=== PATIENT | female | born 1960 | race Caucasian/White ===

== ENCOUNTER 2017-01-07 23:37 | Emergency (ER) | payer OTHER ==
[2017-01-07] MEDS ORDERED: Albuterol/Ipratropium NEB.SOL* Albuterol 2.5 MG/Ipratropium 0.5 MG 3 ML INH ONE (23:54)
[2017-01-07] MEDS ORDERED: methylPREDNISolone 125 MG* 2 ML VIAL IV ONE (23:54)
[2017-01-08 00:13] LABS: Hematocrit 45 % (35-47); Hemoglobin 15.7 g/dl (12.0-16.0); Mean Corpuscular HGB Conc 35 g/dl (31-36); Mean Corpuscular Hemoglobin 32 pg (27-31); Mean Corpuscular Volume 92 fL (80-97); Mean Platelet Volume 7 um3 (7.4-10.4); Red Blood Count 4.93 10^6/ul (4.0-5.4); Red Cell Distribution Width 13 % (10.5-15); White Blood Count 7.2 10^3/ul (3.5-10.8)
[2017-01-08 00:28] LABS: Albumin 4.1 g/dL (3.2-5.2); Calcium 9.5 mg/dL (8.6-10.3); EGFR Non-African American 66.1 (>60); Magnesium 2.2 mg/dL (1.9-2.7); Total Bilirubin 0.4 mg/dL (0.2-1.0); Total Protein 7.1 g/dL (6.4-8.9)
[2017-01-08 00:47] LABS: PCO2 Arterial 43 mmHg (35-45)
[2017-01-08] MEDS ORDERED: Azithromycin TAB* 250 MG PO ONE (01:25)
[2017-01-08] MEDS ORDERED: Ondansetron INJ* 2 MG/ML VIAL IV ONE (01:54)
[2017-01-08] MEDS ORDERED: Ondansetron INJ* 2 MG/ML VIAL ONE (01:55)
[2017-01-08 03:04] VITALS: BP 120/70
--- NOTE | 2017-01-08 03:09 | ED ---
Kandy Ren Emily, scribed for Andrae Herrera on 01/08/17 at 0009 . Shortness of Breath - HPI Summary HPI Summary: This patient is a 56 year old F presenting to [facility] accompanied by family with a chief complaint of SOB that began this morning. The patient rates the pain 7/ 10 in severity. Symptoms aggravated by movement. Symptoms alleviated by nothing. Patient reports CP and inability to walk long distances due to SOB. Patient denies leg swelling. Pt denies hx of respiratory issues. - History of Current Complaint Chief Complaint: EDShortnessOfBreath Time Seen by Provider: 01/07/17 23:43 Hx Obtained From: Patient Onset/Duration: Sudden Onset, Lasting Hours, Still Present Current Severity: Moderate Aggrevating Factors: Movement Alleviating Factors: Nothing - Allergy/Home Medications Allergies/Adverse Reactions: Allergies Allergy/AdvReac Type Severity Reaction Status Date / Time No Known Allergies Allergy Verified 01/07/17 23:41 PMH/Surg Hx/FS Hx/Imm Hx Previously Healthy: Yes Cardiovascular History: Denies: Hx Deep Vein Thrombosis Respiratory History: Denies: Hx Chronic Obstructive Pulmonary Disease (COPD) - PT.STATES NOT DX'D BUT SHE'S SURE SHE HAS COPD Sensory History: Denies: Hx Legally Blind - Surgical History Surgery Procedure, Year, and Place: SURGERY ON FOOT, ELBOW Infectious Disease History: No Infectious Disease History: Denies: Traveled Outside the [place] in Last 30 Days - Family History Known Family History: Positive: Cardiac Disease - ALL UNCLES/AUNTS PASSED FROM [place] - [place] 40, Respiratory Disease - MOTHER - COPD, STOMACH CANCER - Social History Lives: With Family Alcohol Use: None Hx Substance Use: No Substance Use Type: Reports: None Hx Tobacco Use: Yes Smoking Status (MU): Heavy Every Day Tobacco Smoker Review of Systems Positive: Chest Pain Positive: Shortness Of Breath Positive: Other - Positive inability to walk long distances. Negative leg swelling All Other Systems Reviewed And Are Negative: Yes Physical Exam Triage Information Reviewed: Yes Vital Signs On Initial Exam: Initial Vitals Temp Pulse Resp BP Pulse Ox 97.8 F 78 26 166/84 93 01/07/17 23:39 01/07/17 23:39 01/07/17 23:39 01/07/17 23:39 01/07/17 23:39 Vital Signs Reviewed: Yes Appearance: Positive: Well-Appearing, No Pain Distress Skin: Positive: Warm, Skin Color Reflects Adequate Perfusion, Dry Head/Face: Positive: Normal Head/Face Inspection Eyes: Positive: EOMI, AYO ENT: Positive: Normal ENT inspection Neck: Positive: Supple, Nontender Respiratory/Lung Sounds: Positive: Wheezes - Bilateral, Other - Poor air entry Cardiovascular: Positive: RRR, Pulses are Symmetrical in both Upper and Lower Extremities Abdomen Description: Positive: Nontender, Soft Bowel Sounds: Positive: Present Musculoskeletal: Positive: Normal, Strength/ROM Intact Neurological: Positive: Normal, Sensory/Motor Intact, Alert, Oriented to Person Place, Time Diagnostics - Vital Signs Vital Signs Temp Pulse Resp BP Pulse Ox 01/07/17 23:39 97.8 F 78 26 166/84 93 - Laboratory Lab Results: Lab Results 01/07/17 01/07/17 01/08/17 Range/Units 00:15 23:53 00:02 WBC (3.5-10.8) 10^3/ul RBC (4.0-5.4) 10^6/ul Hgb (12.0-16.0) g/dl Hct (35-47) % MCV (80-97) fL MCH (27-31) pg MCHC (31-36) g/dl RDW (10.5-15) % Plt Count (150-450) 10^3/ul MPV (7.4-10.4) um3 Neut % (Auto) (38-83) % Lymph % (Auto) (25-47) % Barren % (Auto) (1-9) % Eos % (Auto) (0-6) % Baso % (Auto) (0-2) % Absolute Neuts (auto) (1.5-7.7) 10^3/ul Absolute Lymphs (auto) (1.0-4.8) 10^3/ul Absolute Monos (auto) (0-0.8) 10^3/ul Absolute Eos (auto) (0-0.6) 10^3/ul Absolute Basos (auto) (0-0.2) 10^3/ul Absolute Nucleated RBC 10^3/ul Nucleated RBC % INR (Anticoag Therapy) (0.89-1.11) APTT (26.0-36.3) seconds D-Dimer, Quantitative (Less Than 230) ng/mL ABG pH 7.41 (7.35-7.45) ABG pCO2 43 (35-45) mmHg ABG pO2 86 (80-100) mmHg ABG HCO3 26.5 (19-31) mmol/L ABG O2 Saturation 98.6 H (95-98) % ABG Base Excess 2.2 H (-2.0-2.0) Sodium 136 (133-145) mmol/L Potassium 4.0 (3.5-5.0) mmol/L Chloride 102 (101-111) mmol/L Carbon Dioxide 28 (22-32) mmol/L Anion Gap 6 (2-11) mmol/L BUN 16 (6-24) mg/dL Creatinine 0.89 (0.51-0.95) mg/dL Est GFR ( Amer) 85.0 (>60) Est GFR (Non-Af Amer) 66.1 (>60) BUN/Creatinine Ratio 18.0 (8-20) Glucose 109 H (70-100) mg/dL Lactic Acid (0.5-2.0) mmol/L Calcium 9.5 (8.6-10.3) mg/dL Magnesium 2.2 (1.9-2.7) mg/dL Total Bilirubin 0.40 (0.2-1.0) mg/dL AST 23 (13-39) U/L ALT 16 (7-52) U/L Alkaline Phosphatase 68 (34-104) U/L Troponin I 0.00 (<0.04) ng/mL B-Natriuretic Peptide 34 ( - 100) pg/mL Total Protein 7.1 (6.4-8.9) g/dL Albumin 4.1 (3.2-5.2) g/dL Globulin 3.0 (2-4) g/dL Albumin/Globulin Ratio 1.4 (1-3) 01/08/17 01/08/17 01/08/17 Range/Units 23:53 23:53 23:53 WBC 7.2 (3.5-10.8) 10^3/ul RBC 4.93 (4.0-5.4) 10^6/ul Hgb 15.7 (12.0-16.0) g/dl Hct 45 (35-47) % MCV 92 (80-97) fL MCH 32 H (27-31) pg MCHC 35 (31-36) g/dl RDW 13 (10.5-15) % Plt Count 229 (150-450) 10^3/ul MPV 7 L (7.4-10.4) um3 Neut % (Auto) 53.3 (38-83) % Lymph % (Auto) 33.2 (25-47) % Barren % (Auto) 11.6 H (1-9) % Eos % (Auto) 1.0 (0-6) % Baso % (Auto) 0.9 (0-2) % Absolute Neuts (auto) 3.8 (1.5-7.7) 10^3/ul Absolute Lymphs (auto) 2.4 (1.0-4.8) 10^3/ul Absolute Monos (auto) 0.8 (0-0.8) 10^3/ul Absolute Eos (auto) 0.1 (0-0.6) 10^3/ul Absolute Basos (auto) 0.1 (0-0.2) 10^3/ul Absolute Nucleated RBC 0.01 10^3/ul Nucleated RBC % 0.1 INR (Anticoag Therapy) 0.85 L (0.89-1.11) APTT 32.8 (26.0-36.3) seconds D-Dimer, Quantitative < 200 (Less Than 230) ng/mL ABG pH (7.35-7.45) ABG pCO2 (35-45) mmHg ABG pO2 (80-100) mmHg ABG HCO3 (19-31) mmol/L ABG O2 Saturation (95-98) % ABG Base Excess (-2.0-2.0) Sodium (133-145) mmol/L Potassium (3.5-5.0) mmol/L Chloride (101-111) mmol/L Carbon Dioxide (22-32) mmol/L Anion Gap (2-11) mmol/L BUN (6-24) mg/dL Creatinine (0.51-0.95) mg/dL Est GFR ( Amer) (>60) Est GFR (Non-Af Amer) (>60) BUN/Creatinine Ratio (8-20) Glucose (70-100) mg/dL Lactic Acid 0.5 (0.5-2.0) mmol/L Calcium (8.6-10.3) mg/dL Magnesium (1.9-2.7) mg/dL Total Bilirubin (0.2-1.0) mg/dL AST (13-39) U/L ALT (7-52) U/L Alkaline Phosphatase (34-104) U/L Troponin I (<0.04) ng/mL B-Natriuretic Peptide ( - 100) pg/mL Total Protein (6.4-8.9) g/dL Albumin (3.2-5.2) g/dL Globulin (2-4) g/dL Albumin/Globulin Ratio (1-3) Result Diagrams: 01/08/17 23:53 01/08/17 00:02 Lab Statement: Any lab studies that have been ordered have been reviewed, and results considered in the medical decision making process. - Radiology CXR Radiology Interpretation Completed By: ED Physician - CXR read by ED physician reveals COPD. - EKG 41 Cardiac Rate: NL - 86 BPM EKG Rhythm: Sinus Rhythm EKG Interpretation: No acute changes Re-Evaluation - Re-Evaluation First Eval Re-Evaluation Time: 01:22 Change: Improved Course/Dx - Course Assessment/Plan: This patient is a 56 year old F presenting to [facility] accompanied by family with a chief complaint of SOB that began this morning. The patient rates the pain 7/10 in severity. Symptoms aggravated by movement. Symptoms alleviated by nothing. Patient reports CP and inability to walk long distances due to SOB. Patient denies leg swelling. Pt denies hx of respiratory issues. Physical Exam Findings. Bilateral wheeze. Poor air entry. Medical Decision Making. An EKG taken at 0042 reveals nml sinus rhythm at 86 BPM with no acute changes. CXR read by ED physician reveals COPD. In the ED course the patient was given duoneb and albuterol. Pulse oximeter done, pt was short of breath upon walking. Pt wants to leave [facility], does not want to be admitted. Patient will be discharged with prescription for albuterol and zithromax and follow up from PCP. The patient is agreeable with this plan. - Diagnoses Differential Diagnosis/HQI/PQRI: Positive: Asthma, Bronchitis, CHF, COPD Exacerbation, Pneumonia, Pneumothorax, Pulmonary Edema Provider Diagnoses: COPD exacerbation, Bronchospasm, Bronchitis Discharge - Discharge Plan Condition: Stable Disposition: HOME Prescriptions: Albuterol HFA INHALER* [Ventolin HFA Inhaler*] 2 puff INH Q6H PRN #1 mdi PRN Reason: Sob/Wheezing Azithromycin TAB* [Zithromax TAB (Z-JESS) 250 mg #6 tabs] 250 mg PO DAILY #4 tab predniSONE TAB* [Deltasone TAB*] 50 mg PO ONCE #5 tab Patient Education Materials: Acute Bronchitis (ED), COPD (Chronic Obstructive Pulmonary Disease) (ED), Bronchospasm (ED), Albuterol (By breathing), Azithromycin (By mouth) Referrals: [facility] [Outside] - 3 Days The documentation as recorded by the Kandy ramos Emily accurately reflects the service I personally performed and the decisions made by , Andrae Herrera.
--- NOTE | 2017-01-08 08:13 | RAD ---
INDICATION: Difficulty breathing COMPARISON: Similar chest x-ray October 14, 2014 TECHNIQUE: Single AP portable view of the chest was obtained. FINDINGS: Image quality is compromised due to the relative inferiority of a portable chest x-ray. The heart and mediastinum exhibit normal size and contour. On the AP view the lungs appear hyperaerated. The lungs are otherwise clear. There is no evidence of a large pleural effusion. Visualized bones are normal for the patient's age. IMPRESSION: Again seen is the appearance of chronic obstructive pulmonary disease without acute cardiopulmonary abnormality.
== END 2017-01-08 03:07 | disposition home or self-care (01) ==
LOC: ED 23:37
DX: J44.1 Chronic obstructive pulmonary disease with (acute) exacerbation (principal); J20.9 Acute bronchitis, unspecified; R06.02 Shortness of breath; F17.210 Nicotine dependence, cigarettes, uncomplicated
CPT/HCPCS: 36415; 36600; 71010; 80053; 82803; 83605; 83735; 83880; 84484; 85025; 85379; 85610; 85730; 87040; 93005; 94640; 96374; 96375; 99283; A9270-GY; J2405; J2930

== ENCOUNTER 2019-01-06 01:43 | Emergency (ER) | payer OTHER ==
--- NOTE | 2019-01-06 04:07 | ED ---
Abdominal Pain/Female - HPI Summary HPI Summary: This pt is a 58 Y/O F presenting to [facility] accompanied by her with a CC of mid epigastric abdominal pain that is rated a 10/10 in severity and has been present for months. She states that the pain has been intermittent since the onset. She states that her episode today has started since 229901/05/19. She denies any N/V, fevers, CP, SOB, and headaches. She states that she has no aggravating or alleviating factors. Her states that she has been having muscular cramps as a result to an incorrect thyroid medication. She denies any abdominal surgery. She states that she has a PMHx of degenerative spine disease and a Hx of COPD. She states that she smokes less than a half PPD. - History of Current Complaint Chief Complaint: EDAbdPain Stated Complaint: ABD PAIN PER EMS Time Seen by Provider: 01/06/19 03:56 Hx Obtained From: Patient Onset/Duration: Sudden Onset, Still Present Timing: Intermittent Episode Lasting - since 229901/05/19 Severity Initially: Severe Severity Currently: Severe Pain Intensity: 10 Pain Scale Used: 0-10 Numeric Location: Epigastric Radiates: No Character: Cramping Aggravating Factor(s): Nothing Alleviating Factor(s): Nothing Associated Signs and Symptoms: Positive: Negative - SOB, and headaches. Negative: Fever, Chest Pain, Nausea, Vomiting Allergies/Adverse Reactions: Allergies Allergy/AdvReac Type Severity Reaction Status Date / Time No Known Allergies Allergy Verified 01/06/19 01:55 Home Medications: Home Medications Budesonide/Formote 160/4.5(NF) [Symbicort 160/4.5 (NF)] 160 mg INH BID 01/06/19 [History Confirmed 01/06/19] Levothyroxine Sodium 100 mcg PO DAILY 01/06/19 [History Confirmed 01/06/19] PMH/Surg Hx/FS Hx/Imm Hx Previously Healthy: Yes Endocrine/Hematology History: Denies: Hx Diabetes Cardiovascular History: Denies: Hx Deep Vein Thrombosis Respiratory History: Reports: Hx Chronic Obstructive Pulmonary Disease (COPD) - PT.STATES NOT DX'D BUT SHE'S SURE SHE HAS COPD Denies: Hx Asthma Sensory History: Denies: Hx Legally Blind Opthamlomology History: Denies: Hx Legally Blind Neurological History: Reports: Other Neuro Impairments/Disorders - degenerative spine disease - Surgical History Surgical History: Yes Surgery Procedure, Year, and Place: SURGERY ON FOOT, ELBOW - Immunization History Date of Tetanus Vaccine: unk Date of Influenza Vaccine: unk Immunizations Up to Date: Yes Infectious Disease History: No Infectious Disease History: Denies: Traveled Outside the [place] in Last 30 Days - Family History Known Family History: Positive: Cardiac Disease - ALL UNCLES/AUNTS PASSED FROM [place] - [place] 38, Respiratory Disease - MOTHER - COPD, STOMACH CANCER - Social History Occupation: Disabled Lives: With Family Alcohol Use: None Hx Substance Use: Yes Substance Use Type: Reports: Marijuana Substance Use Comment - Amount & Last Used: daily Hx Tobacco Use: Yes Smoking Status (MU): Light Every Day Tobacco Smoker Amount Used/How Often: < 1/3 PPD Review of Systems Negative: Fever Negative: Chest Pain Negative: Shortness Of Breath Positive: Abdominal Pain - epigastric . Negative: Vomiting, Nausea Negative: Headache All Other Systems Reviewed And Are Negative: Yes Physical Exam - Summary Physical Exam Summary: Appearance: Well-appearing, Well-nourished, lying in bed comfortably Skin: Warm, dry, no obvious rash Eyes: sclera anicteric, no conjunctival pallor ENT: mucous membranes moist, pharynx appears normal Neck: Supple, nontender Respiratory: Clear to auscultation, no signs of respiratory distress Cardiovascular: Normal S1, S2. No murmurs. Normal distal pulses in tibial and radial bilaterally. Abdomen: Soft, very localized tenderness over the xyphoid process. There is no tenderness anywhere else in the abdomen. normal active bowel sounds present Musculoskeletal: Normal, Strength/ROM Intact Neurological: A&Ox3, awake and alert, mentation is normal, speech is fluent and appropriate Psychiatric: affect is normal, does not appear anxious or depressed Triage Information Reviewed: Yes Vital Signs On Initial Exam: Initial Vitals Pulse BP Pulse Ox 88 157/102 95 01/06/19 01:51 01/06/19 01:51 01/06/19 01:51 Vital Signs Reviewed: Yes Procedures - Sedation Patient Received Moderate/Deep Sedation with Procedure: No Diagnostics - Vital Signs Vital Signs Temp Pulse Resp BP Pulse Ox 01/06/19 02:52 71 125/100 95 01/06/19 02:22 70 114/81 95 01/06/19 02:00 89 96 01/06/19 01:52 97.8 F 79 18 157/102 96 01/06/19 01:51 88 157/102 95 - Laboratory Lab Statement: Any lab studies that have been ordered have been reviewed, and results considered in the medical decision making process. - Radiology Sternum X-Ray Radiology Interpretation Completed By: ED Physician Summary of Radiographic Findings: No acute processes. Pending offical review. CXR Radiology Interpretation Completed By: ED Physician Summary of Radiographic Findings: Hyperinflation, consistent with COPD. otherwise no acute processes. Pending offical review. Abdominal Pain Fem Course/Dx - Course Course Of Treatment: This pt is a 58 Y/O F presenting to [facility] accompanied by her with a CC of mid epigastric abdominal pain that is rated a 10/10 in severity and has been present for months. She states that the pain has been intermittent since the onset. She states that her episode today has started since 2300 01/05/19. She denies any N/V, fevers, CP, SOB, and headaches. She has very localized tenderness over the zyphoid process. There is no tenderness anywhere else in the abdomen. Her CXR found that she has Hyperinflation, consistent with COPD. otherwise no acute processes. Her Sternum X-Ray found that she has no acute processes. She will be discharged home with a Dx of xyphoidalgia. - Diagnoses Provider Diagnoses: Xyphoidalgia Discharge ED - Sign-Out/Discharge Documenting (check all that apply): Patient Departure - discharge - Discharge Plan Condition: Good Disposition: HOME Patient Education Materials: Chest Pain (ED) Referrals: [facility] [Outside] Additional Instructions: Your pain is very well localized to the bone at the bottom of your breastbone called the xipoid process. I am not sure why this would be causing you trouble, but you can take OTC pain killers for this. You might also try lidocaine patch for this. - Billing Disposition and Condition Condition: GOOD Disposition: Home - Attestation Statements Document Initiated by Scribe: Yes Documenting Scribe: Francisco Manley Provider For Whom Scribe is Documenting (Include Credential): Alexander Ibanez MD Scribe Attestation: I, Francisco Manley, scribed for Alexander Ibanez MD on 01/07/19 at 1950. Scribe Documentation Reviewed: Yes Provider Attestation: The documentation as recorded by the Francisco ramos accurately reflects the service I personally performed and the decisions made by me, Alexander Ibanez MD Status of Cassandra Document: Viewed
[2019-01-06] MEDS ORDERED: Ibuprofen TAB* 400 MG PO ONE (04:27)
[2019-01-06 04:54] VITALS: BP 156/87
== END 2019-01-06 04:53 | disposition home or self-care (01) ==
LOC: ED 01:43
DX: M89.8X8 Other specified disorders of bone, other site (principal); R10.13 Epigastric pain; J44.9 Chronic obstructive pulmonary disease, unspecified; Z79.899 Other long term (current) drug therapy; F17.210 Nicotine dependence, cigarettes, uncomplicated
CPT/HCPCS: 71046; 71120; 99282; A9270-GY